=== PATIENT | female | born 1950 | race Caucasian/White ===

== ENCOUNTER 2018-10-03 09:35 | Emergency (ER) | payer MEDICARE ==
[~2018-10-03] VITALS: Ht 167.6 cm; Wt 72.7 kg
[~2018-10-03 09:35] MED LIST: ASPI1TAB31 PO; BUDE10.22 INH; LEVO25TA2 PO; OMEP40CA6 PO; ONDA8TAB9 PO; albuter
[2018-10-03 10:32] LABS: BASOPHILS # (AUTO) 0.01 x10^3/uL (0-0.1); BASOPHILS % (AUTO) 0 % (0-1); EOSINOPHILS % (AUTO) 2 % (1-7); LYMPHOCYTES # (AUTO) 1.22 x10^3/uL (1-3.4); LYMPHOCYTES % (AUTO) 19 % (22-44); MD NO; MEAN CORPUSCULAR HEMOGLOBIN 28.6 pg (27.0-34.8); MEAN CORPUSCULAR HGB CONC 32.7 g/dL (32.4-35.8); MEAN CORPUSCULAR VOLUME 87.6 fL (80-100); MEAN PLATELET VOLUME 8.5 fL (7.4-10.4); MONOCYTES # (AUTO) 0.59 x10^3/uL (0.2-0.8); MONOCYTES % (AUTO) 9 % (2-9); NEUTROPHILS # (AUTO) 4.57 x10^3/uL (1.8-6.8); NEUTROPHILS % (AUTO) 70 % (42-75); PLATELET COUNT 249 x10^3/uL (130-400); RED BLOOD COUNT 4.78 x10^6/uL (3.82-5.3); RED CELL DISTRIBUTION WIDTH 13.7 % (9.6-15.2)
[2018-10-03 10:36] LABS: ALANINE AMINOTRANSFERASE 40 U/L (12-78); ALBUMIN 3.9 g/dL (3.4-5.0); ANION GAP 7 mmol/L (5-15); CALCIUM 9.3 mg/dL (8.5-10.1); CHLORIDE 109 mmol/L (98-107); CREATININE 1.33 mg/dL (0.55-1.02)
[2018-10-03 10:38] LABS: ALKALINE PHOSPHATASE 56 U/L (45-117); BILIRUBIN,TOTAL 0.6 mg/dL (0.2-1.0)
[2018-10-03] MEDS ORDERED: KETOROLAC 30 MG/1 ML ONE (11:16)
[2018-10-03] MEDS ORDERED: KETOROLAC 30 MG/1 ML IM ONE (11:30)
[2018-10-03] MEDS ORDERED: KETOROLAC 30 MG/1 ML IVPush ONE (11:30)
[2018-10-03 11:36] LABS: MICROSCOPIC NOT IND
[2018-10-03 12:01] VITALS: BP 121/57
[2018-10-03 12:09] LABS: CULTURE INDICATED? NO
== END 2018-10-03 13:14 | disposition home or self-care (01) ==
LOC: ED 13:08
DX: K59.00 Constipation, unspecified (principal); R10.9 Unspecified abdominal pain; M54.9 Dorsalgia, unspecified
CPT/HCPCS: 36415; 74176; 80053; 81003; 83690; 85025; 96372; 99284; J1885